=== PATIENT | female | born 1975 | race Caucasian/White ===

== ENCOUNTER 2016-05-28 07:17 | Day surgery (SDC) | payer OTHER ==
[2016-05-27 10:16] VITALS: BMI 21.5
[~2016-05-28] VITALS: Ht 152.4 cm; Wt 57.3 kg
[2016-05-28] VITALS (14 sets, daily range): BP systolic 119–158; BP diastolic 63–84; PULSE 58–108; RESP 10–21; Ht 152.4 cm; Wt 57.3 kg
[~2016-05-28 07:17] MED LIST: ACETAMINOPHEN 1000 MG/100 ML IVPB ONE; CARV3.1260 PO; CEFAZOLIN 1 GM INJ ONE; CEFAZOLIN 2 GM/50 ML (PMX) 50 ML IVPB SCH; LISI20TA11 PO; SOD CHLORIDE 0.9% 1,000 ML IV SCH
[2016-05-28] MEDS ORDERED: SOY155CA PO (08:21)
[2016-05-28] MEDS ORDERED: LACT10SO5 PO (08:21)
[2016-05-28] MEDS ORDERED: PROCTOZONE PR (08:21)
[2016-05-28 08:23] LABS: ADD SCAN DIFF NO
[2016-05-28 08:28] LABS: BASOPHIL # 0.1 10^3/ul (0.0-0.1); BASOPHILS % 0.9 % (0.0-2.0); EOSINOPHILS # 0.2 10^3/ul (0.0-0.5); EOSINOPHILS % 3.4 % (0.0-7.0); HEMATOCRIT 30.7 % (37.0-47.0); HEMOGLOBIN 9.5 g/dl (12.0-16.0); LYMPHOCYTES # 2.4 10^3/ul (0.8-2.9); LYMPHOCYTES % 40.2 % (15.0-51.0); MEAN CORPUSCULAR HGB CONC 30.9 g/dl (32.0-37.0); MEAN CORPUSCULAR VOLUME 67.9 fl (82.0-101.0); MEAN PLATELET VOLUME 9.6 fl (7.4-10.4); MONOCYTE # 0.4 10^3/ul (0.3-0.9); MONOCYTES % 6.7 % (0.0-11.0); NEUTROPHIL # 2.8 10^3/ul (1.6-7.5); NEUTROPHILS % 48.3 % (39.0-77.0); PLATELET COUNT 292 10^3/UL (140-415); RED BLOOD COUNT 4.52 10^6/ul (4.20-5.40); RED CELL DISTRIBUTION WIDTH 14.6 % (11.5-14.5); WHITE BLOOD COUNT 5.9 10^3/ul (4.8-10.8)
[2016-05-28 08:44] LABS: CREATININE 0.55 mg/dl (0.44-1.00); INR 0.9; PROTIME 12.1 Sec (12.2-14.2); PT RATIO 0.9
[2016-05-28 08:45] LABS: PARTIAL THROMBOPLASTIN TIME 29.5 Sec (25.0-35.0)
[2016-05-28] MEDS ORDERED: LIDOCAINE 2% (SDV) 5 ML INJ ONE (09:27)
[2016-05-28] MEDS ORDERED: ROCURONIUM 50 MG INJ ONE (09:27)
[2016-05-28] MEDS ORDERED: PROPOFOL 20 ML ONE (09:27)
[2016-05-28] MEDS ORDERED: ONDANSETRON 4 MG INJ ONE (09:31)
[2016-05-28] MEDS ORDERED: BUPIVACAINE 0.5%/EPI (SDV) 30 ML INJ ONE ×2 (09:31→09:32)
[2016-05-28] MEDS ORDERED: DEXAMETHASONE 4 MG/ML 1 ML INJ ONE (09:31)
[2016-05-28] MEDS ORDERED: ONDANSETRON 4 MG INJ IV PRN (10:00)
[2016-05-28] MEDS ORDERED: MEPERIDINE 25 MG INJ IV PRN (10:00)
[2016-05-28] MEDS ORDERED: hydrALAzine 20 MG INJ IV PRN (10:00)
[2016-05-28] MEDS ORDERED: LABETALOL HCL 20MG INJ IV PRN (10:00)
[2016-05-28] MEDS ORDERED: EPHEDrine SULFATE 50 MG/5 ML SYG IV PRN (10:00)
[2016-05-28] MEDS ORDERED: FENTAnyl 50 MCG/ML VIAL IV PRN ×3 (10:00)
[2016-05-28] MEDS ORDERED: OXYCODONE/ACETAMINOPHEN (5/325) TAB PO PRN ×2 (10:00)
[2016-05-28] MEDS ORDERED: HYDROmorphONE (0.2 MG/ML) 10ML SYG IV PRN ×3 (10:00)
--- NOTE | 2016-05-28 11:19 | OPR ---
DATE OF OPERATION: 05/28/2016 PREOPERATIVE DIAGNOSIS: Symptomatic hemorrhoids, rule out fissure. POSTOPERATIVE DIAGNOSIS: Symptomatic hemorrhoids. OPERATION PERFORMED: Anal exam under anesthesia and hemorrhoidectomy x3. ANESTHESIA: General. ANESTHESIOLOGIST: SURGEON: Brandon Garcia MD REEL SLITTER: Dr. Briseno INDICATIONS FOR PROCEDURE: The patient is a 41-year-old female who complained of multiple previous episodes of perianal pain with bowel movements. She was seen in surgical consultation, and the exam was somewhat limited due to pain. There were obvious thrombosed external hemorrhoids. She was cou nseled as to the need for anal exam under anesthesia for probable hemorrhoidectomy and possible sphi ncterotomy for treatment of a fissure. She consented and was scheduled for surgery. DESCRIPTION OF PROCEDURE: The patient was brought to the operating theater, placed under general en dotracheal tube anesthesia. She was put in the prone jackknife position. The buttocks were widely shaved, taped, prepped, and draped in usual sterile fashion. Visual inspection revealed obvious thr ombosed hemorrhoidal tags associated with redundant perianal tissue. There was no evidence of anal mass. Upon insertion of the anal retractors, a 360-degree inspection of the anal and rectal mucosa was made. There was no evidence of fissure or other pathology. Therefore, decision was made to pro ceed with hemorrhoidectomy. The 3 areas of the external hemorrhoids were located between the 9 o'cl ock and 3 o'clock position. Each one was grasped with a hemorrhoid clamp. The entire specimen was elevated and transected with the LigaSure device. The specimen was removed and sent for pathologic analysis. Minimal bleeding was controlled with cautery. The area was then infiltrated with 0.5% Ma rcaine local anesthetic with epinephrine, and a sterile dressing was applied. The patient tolerated procedure well. The estimated blood loss was approximately 10 mL. There were no complications, an d the patient was transported in stable condition to the recovery room. Dictated By: BRANDON ESPARZA/AMBROSE Conf#: [id number] DID#: [id number]
== END 2016-05-28 12:15 | disposition home or self-care (01) ==
LOC: SDS 07:17
PROVIDERS: ATTEND Surgery Surgical Oncology
DX: K64.8 Other hemorrhoids (principal); I10 Essential (primary) hypertension
CPT/HCPCS: 46250; 80048; 84703; 85025; 85610; 85730; 88302; J0131; J0690; J1100; J2405; J3010; Z7512; Z7610